=== PATIENT | male | born 1980 | race Caucasian/White ===

== ENCOUNTER 2018-07-27 05:58 | Emergency (ER) | payer OTHER ==
--- NOTE | 2018-07-27 06:00 | ER Report ---
History and Physical Time Seen By MD: 06:00 (ALYSIA MAGALLON DO) HPI/ROS CHIEF COMPLAINT: Abdominal pain HISTORY OF PRESENT ILLNESS: 32 [id number] male presents with abdominal pain that began last evening around 8 PM. The pain is located in the right lower quadrant this morning and more intense. He describes it as sharp. Patient notes severe nausea but no vomiting. He is in no change in bowel habits. His last BM was yesterday and was normal. Patient has no previous abdominal surgeries. Patient notes the bumps aggravated this pain on the way over. Patient notes he feels better lying down. Patient denies fever, but notes some subjective chills. REVIEW OF SYSTEMS: Respiratory: No cough, no dyspnea. Cardiovascular: No chest pain, no palpitations. Gastrointestinal: As above Musculoskeletal: No back pain. (ALYSIA MAGALLON DO) Home Meds Active Scripts Ondansetron Hcl (ZOFRAN) 4 Mg Tablet, 4 MG PO Q8H for Nausea, #15 TAB 0 Refills Prov:GUY YOUNG MD 07/27/18 Dicyclomine Hcl (DICYCLOMINE HCL) 20 Mg Tablet, 20 MG PO QID for abdominal cramps, #20 TAB 0 Refills Prov:GUY YOUNG MD 07/27/18 Reported Medications Amphet Asp/Amphet/D-Amphet (ADDERALL 10 MG TABLET) 10 Mg Tablet, 10 MG PO BID 07/27/18 Reviewed Nurses Notes: Yes Old Medical Records Reviewed: Yes (ALYSIA MAGALLON DO) Constitutional Vital Sign - Last 24 Hours 07/27/18 06:03 Temp 98.1 Pulse 73 Resp 16 B/P (MAP) 129/80 Pulse Ox 90 O2 Delivery Room Air (GUY YOUNG MD) Physical Exam General Appearance: The patient is alert, has no immediate need for airway protection and no current signs of toxicity. Vital signs stable, afebrile, pulse ox normal Eyes: Pupils equal and round no injection. Respiratory: Chest is non tender, lungs are clear to auscultation. Cardiac: regular rate and rhythm Gastrointestinal: Abdomen is soft, moderate right lower quadrant tenderness with some rebound and guarding, positive heel tap sign no masses, bowel sounds decreased. Musculoskeletal: Neck: Neck is supple and non tender. No lymphadenopathy Extremities have full range of motion and are non tender. Skin: No rashes or lesions. DIFFERENTIAL DIAGNOSIS: After history and physical exam differential diagnosis was considered for abdominal pain including but not limited to appendicitis, cholecystitis, gastritis and urinary tract infection. (ALYSIA MAGALLON DO) Medical Decision Making Data Points Result Diagram: 07/27/18 0608 07/27/18 0608 Laboratory Hematology Test 07/27/18 06:08 Red Blood Count 5.12 M/uL (4.00-5.60) Mean Corpuscular Volume 93.3 fL (80.0-96.0) Mean Corpuscular Hemoglobin 32.5 pg (26.0-33.0) Mean Corpuscular Hemoglobin Concent 34.8 g/dL (32.0-36.0) Red Cell Distribution Width 12.5 % (11.5-14.5) Mean Platelet Volume 7.5 fL (7.2-11.1) Neutrophils (%) (Auto) 85.5 % (39.4-72.5) Lymphocytes (%) (Auto) 9.4 % (17.6-49.6) Monocytes (%) (Auto) 4.6 % (4.1-12.4) Eosinophils (%) (Auto) 0.2 % (0.4-6.7) Basophils (%) (Auto) 0.3 % (0.3-1.4) Nucleated RBC Relative Count (auto) 0.0 /100WBC Neutrophils # (Auto) 6.5 K/uL (2.0-7.4) Lymphocytes # (Auto) 0.7 K/uL (1.3-3.6) Monocytes # (Auto) 0.3 K/uL (0.3-1.0) Eosinophils # (Auto) 0.0 K/uL (0.0-0.5) Basophils # (Auto) 0.0 K/uL (0.0-0.1) Nucleated RBC Absolute Count (auto) 0.00 K/uL Sodium Level 137 mmol/L (137-145) Potassium Level 4.2 mmol/L (3.5-5.0) Chloride Level 105 mmol/L (98-107) Carbon Dioxide Level 25 mmol/L (22-30) Blood Urea Nitrogen 26 mg/dl (9-21) Creatinine 1.20 mg/dl (0.66-1.25) Glomerular Filtration Rate Calc > 60.0 Random Glucose 109 mg/dl (75-110) Calcium Level 9.5 mg/dl (8.4-10.2) Total Bilirubin 1.2 mg/dl (0.2-1.3) Aspartate Amino Transf (AST/SGOT) 20 U/L (0-35) Alanine Aminotransferase (ALT/SGPT) 50 U/L (0-56) Alkaline Phosphatase 50 U/L (0-126) Total Protein 7.4 g/dl (6.3-8.2) Albumin 4.5 g/dl (3.5-5.0) Amylase Level 43 U/L (0-110) Lipase 79 U/L (23-300) Chemistry Test 07/27/18 06:08 White Blood Count 7.6 k/uL (4.5-11.0) Red Blood Count 5.12 M/uL (4.00-5.60) Hemoglobin 16.6 g/dL (14.0-18.0) Hematocrit 47.7 % (42.0-52.0) Mean Corpuscular Volume 93.3 fL (80.0-96.0) Mean Corpuscular Hemoglobin 32.5 pg (26.0-33.0) Mean Corpuscular Hemoglobin Concent 34.8 g/dL (32.0-36.0) Red Cell Distribution Width 12.5 % (11.5-14.5) Platelet Count 255 K/uL (150-450) Mean Platelet Volume 7.5 fL (7.2-11.1) Neutrophils (%) (Auto) 85.5 % (39.4-72.5) Lymphocytes (%) (Auto) 9.4 % (17.6-49.6) Monocytes (%) (Auto) 4.6 % (4.1-12.4) Eosinophils (%) (Auto) 0.2 % (0.4-6.7) Basophils (%) (Auto) 0.3 % (0.3-1.4) Nucleated RBC Relative Count (auto) 0.0 /100WBC Neutrophils # (Auto) 6.5 K/uL (2.0-7.4) Lymphocytes # (Auto) 0.7 K/uL (1.3-3.6) Monocytes # (Auto) 0.3 K/uL (0.3-1.0) Eosinophils # (Auto) 0.0 K/uL (0.0-0.5) Basophils # (Auto) 0.0 K/uL (0.0-0.1) Nucleated RBC Absolute Count (auto) 0.00 K/uL Glomerular Filtration Rate Calc > 60.0 Calcium Level 9.5 mg/dl (8.4-10.2) Total Bilirubin 1.2 mg/dl (0.2-1.3) Aspartate Amino Transf (AST/SGOT) 20 U/L (0-35) Alanine Aminotransferase (ALT/SGPT) 50 U/L (0-56) Alkaline Phosphatase 50 U/L (0-126) Total Protein 7.4 g/dl (6.3-8.2) Albumin 4.5 g/dl (3.5-5.0) Amylase Level 43 U/L (0-110) Lipase 79 U/L (23-300) (GUY YOUNG MD) EKG/Imaging Imaging [place] [facility] [place] Guy Dowd : 1980 MR: [id number] V: [id number] EXAM DATE: ORDERING PHYSICIAN: ALYSIA MAGALLON TECHNOLOGIST: Location: [facility] Patient: Guy Dowd : 1980 Visit/Account:[id number] Date of Sevice: 07/27/2018 COMPUTED TOMOGRAPHY ABDOMEN AND PELVIS WITH INTRAVENOUS CONTRAST DATE OF EXAM: 07/27/2018 6:10 AM INDICATION: Right lower quadrant abdominal pain. COMPARISON: None. TECHNIQUE: Contrast enhanced abdomen and pelvis CT performed during the injection of 75 ml of Isovue 370. Sagittal and coronal reconstructions were performed. One of the following dose optimization techniques was utilized in the performance of this exam: Automated exposure control; adjustment of the mA and/or kV according to the patient's size; or use of an iterative reconstruction technique. Specific details can be referenced in the facility's radiology CT exam operational policy. FINDINGS: Lung bases: Minimal atelectasis. Liver and hepatic vasculature: Normal. Gallbladder and bile ducts: Normal. Spleen: Normal. Pancreas: Normal. Adrenals: Normal. Kidneys, ureters and bladder: Normal. Retroperitoneum and aorta: Normal. GI tract, mesentery and peritoneum: Fluid-filled loops of distal small bowel may have slightly increased wall enhancement. Mildly prominent mesenteric lymph nodes. Normal appendix. Prostate and seminal vesicles: Normal. Bones and soft tissues: No acute abnormality or suspicious lesion. IMPRESSION: 1. Normal appendix. 2. Question mild infectious/inflammatory enteritis and mesenteric adenitis. Report Dictated By: Greg Moe MD at 07/27/2018 6:54 AM Report E-Signed By: Greg Moe MD at 07/27/2018 7:00 AM [id number] (GYU YOUNG MD) ED Course/Re-evaluation Clinical Indication for ER IV: Hydration, IV Access (ALYSIA MAGALLON DO) ED Course 07/27/2018 7:14:36 am patient feeling improved. CT scan consistent with inflammatory process or mesenteric adenitis. We'll discharge home Decision to Disposition Date: Jul 27, 2018 Decision to Disposition Time: 07:14 (GUY YOUNG MD) Depart Departure Latest Vital Signs Vital Signs Date Time Temp Pulse Resp B/P (MAP) Pulse Ox O2 Delivery O2 Flow Rate FiO2 07/27/18 06:03 98.1 73 16 129/80 90 Room Air (GUY YOUNG MD) Impression: Primary Impression: Mesenteric adenitis Condition: Improved Disposition: HOME OR SELF-CARE New Scripts Ondansetron Hcl (ZOFRAN) 4 Mg Tablet 4 MG PO Q8H for Nausea, #15 TAB 0 Refills Prov: GUY YOUNG MD 07/27/18 Dicyclomine Hcl (DICYCLOMINE HCL) 20 Mg Tablet 20 MG PO QID for abdominal cramps, #20 TAB 0 Refills Prov: GUY YOUNG MD 07/27/18 Departure Forms: ER Transition Record, Medications Reconciliation, Off Work/School Form, School or Work Release?: Work Number of days to be released: 1 Patient Portal Information Patient Instructions: Mesenteric Adenitis (ED) Additional Instructions: Return to the emergency department if your symptoms worsen, you develop fever or have persistent nausea and vomiting. ALYSIA MAGALLON DO Jul 27, 2018 06:00 GUY YOUNG MD Jul 27, 2018 07:12
[2018-07-27] MEDS ORDERED: DEXT10TA9 PO (06:10)
[2018-07-27] MEDS ORDERED: NS(*) 0.9% 1000 ML BAG 1,000 ML IV ONE (06:10)
[2018-07-27 06:26] LABS: PLATELET COUNT, AUTOMATED 255 K/uL (150-450)
[2018-07-27] MEDS ORDERED: IOPAMIDOL 76% 50 ML INFUS BTL 100 ML ONE (06:28)
[2018-07-27 07:00] VITALS: BP 122/76
--- NOTE | 2018-07-27 07:05 | RADIOLOGY IMAGING REPORT ---
[place] [facility] [place] NAME: Guy Dowd : 1980 MR: [id number] V: [id number] EXAM DATE: ORDERING PHYSICIAN: ALYSIA MAGALLON TECHNOLOGIST: Location: [facility] Patient: Guy Dowd : 1980 Visit/Account:[id number] Date of Sevice: 07/27/2018 COMPUTED TOMOGRAPHY ABDOMEN AND PELVIS WITH INTRAVENOUS CONTRAST DATE OF EXAM: 07/27/2018 6:10 AM INDICATION: Right lower quadrant abdominal pain. COMPARISON: None. TECHNIQUE: Contrast enhanced abdomen and pelvis CT performed during the injection of 75 ml of Isovue 370. Sagittal and coronal reconstructions were performed. One of the following dose optimization te chniques was utilized in the performance of this exam: Automated exposure control; adjustment of the mA and/or kV according to the patient's size; or use of an iterative reconstruction technique. Spec [facility] details can be referenced in the facility's radiology CT exam operational policy. FINDINGS: Lung bases: Minimal atelectasis. Liver and hepatic vasculature: Normal. Gallbladder and bile ducts: Normal. Spleen: Normal. Pancreas: Normal. Adrenals: Normal. Kidneys, ureters and bladder: Normal. Retroperitoneum and aorta: Normal. GI tract, mesentery and peritoneum: Fluid-filled loops of distal small bowel may have slightly incre ased wall enhancement. Mildly prominent mesenteric lymph nodes. Normal appendix. Prostate and seminal vesicles: Normal. Bones and soft tissues: No acute abnormality or suspicious lesion. IMPRESSION: 1. Normal appendix. 2. Question mild infectious/inflammatory enteritis and mesenteric adenitis. Report Dictated By: Greg Moe MD at 07/27/2018 6:54 AM Report E-Signed By: Greg Moe MD at 07/27/2018 7:00 AM [id number]
[2018-07-27] MEDS ORDERED: ONDA4TAB97 PO (07:12)
[2018-07-27] MEDS ORDERED: DICY20TA70 PO (07:12)
== END 2018-07-27 07:28 | disposition home or self-care (01) ==
LOC: ER 06:05
DX: I88.0 Nonspecific mesenteric lymphadenitis (principal)
CPT/HCPCS: 74177; 82150; 83690; 85025; 96360; 99284; J7030; Q9967; 82040; 82247; 82310; 82374; 82435; 82565; 82947; 84075; 84132; 84155; 84295; 84450; 84460; 84520